=== PATIENT | female | born 1955 | race Caucasian/White ===

== ENCOUNTER 2016-03-02 13:14 | Outpatient (CLI) | payer MEDICARE, MEDICAID ==
[2016-03-02 14:36] LABS: T4 7.2 ug/dL (4.87-11.72)
== END 2016-03-02 13:15 | disposition home or self-care (01) ==
LOC: BURLAB 13:14
PROVIDERS: ATTEND Family Medicine
DX: E07.9 Disorder of thyroid, unspecified (principal)
CPT/HCPCS: 36415; 84436; 84443; 84479

== ENCOUNTER 2023-02-26 14:17 | Emergency (ER) | payer MEDICARE, OTHER ==
[2023-02-26] MEDS ORDERED: Acetaminophen 500 MG TAB ONE (15:17)
== END 2023-02-26 18:25 | disposition home or self-care (01) ==
LOC: BURERS 14:17
DX: S32.039A Unspecified fracture of third lumbar vertebra, initial encounter for closed fracture (principal); S32.059A Unspecified fracture of fifth lumbar vertebra, initial encounter for closed fracture; W19.XXXA Unspecified fall, initial encounter
CPT/HCPCS: 72100; 72170

== ENCOUNTER 2023-04-07 11:39 | Outpatient (CLI) | payer MEDICARE | END 2023-04-07 11:40 | disposition home or self-care (01) | LOC: BURRAD 11:39 | PROVIDERS: ATTEND Neurological Surgery | DX: S32.031A Stable burst fracture of third lumbar vertebra, initial encounter for closed fracture (principal); S32.051A Stable burst fracture of fifth lumbar vertebra, initial encounter for closed fracture | CPT/HCPCS: 72100 ==